=== PATIENT | male | born 1980 | race Caucasian/White ===

== ENCOUNTER 2022-01-22 07:22 | Outpatient (CLI) | payer OTHER, SELFPAY ==
[2022-01-22 13:48] LABS: Albumin* 4.7 g/dL (3.3-5.0); Chloride* 103 mmol/L (96-114)
[2022-01-22 13:49] LABS: Sodium* 137 mmol/L (135-149)
[2022-01-22 13:51] LABS: Alkaline Phosphatase* 73 U/L (40-150); Aspartate Amino Transferase* 131 U/L (12-35); Bilirubin Total* 0.8 mg/dL (0.1-1.5); Carbon Dioxide* 26 mmol/L (20-32); Cholesterol* 259 mg/dL (90-199); Potassium* 4.4 mmol/L (3.6-5.1); Total Protein* 7.6 g/dL (6.0-8.3)
[2022-01-22 13:52] LABS: Alanine Aminotransferase* 179 U/L (4-50); Blood Urea Nitrogen* 11 mg/dL (5-24); Calcium* 9.8 mg/dL (8.4-10.6); Glucose* 188 mg/dL (60-115); HDL Cholesterol* 76 mg/dL (>=40); LDL Cholesterol Calculated 149 mg/dL (<100); Triglycerides* 169 mg/dL (40-149)
[2022-01-22 13:53] LABS: Creatinine Urine 170.5 mg/dL
[2022-01-22 14:00] LABS: Microalbumin Creatinine Ratio 10 mg/g (0-30); Microalbumin Urine 3 mg/dL
[2022-01-22 14:36] LABS: Creatinine* 0.8 mg/dL (0.5-1.5); Estimated Glomerular Filt Rate 113 ml/min
== END 2022-01-22 07:23 | disposition home or self-care (01) ==
PROVIDERS: PCP Physician Assistant Medical; Visit Provider Physician Assistant Medical
DX: E78.5 Hyperlipidemia, unspecified (principal); E11.9 Type 2 diabetes mellitus without complications; I10 Essential (primary) hypertension
CPT/HCPCS: 80053; 80061; 82043; 82570

== ENCOUNTER 2022-10-09 12:22 | Outpatient (CLI) | payer OTHER, SELFPAY ==
--- NOTE | 2022-10-09 08:52 | W.ANESCHARGE ---
Anesthesia Charges Start Date/Time Anesthesia Start Date: 10/09/22 Anesthesia Start Time: 13:23 Stop Date/Time Anesthesia Stop Date: 10/09/22 Anesthesia Stop Time: 14:04
--- NOTE | 2022-10-09 14:07 | W.ANESCHARGE ---
Anesthesia Charges Start Date/Time Anesthesia Start Date: 10/09/22 Anesthesia Start Time: 13:23 Stop Date/Time Anesthesia Stop Date: 10/09/22 Anesthesia Stop Time: 14:04
== END 2022-10-09 12:23 | disposition home or self-care (01) ==
PROVIDERS: PCP Physician Assistant Medical; Visit Provider Internal Medicine
DX: K62.89 Other specified diseases of anus and rectum (principal); K63.5 Polyp of colon; K56.690 Other partial intestinal obstruction; D49.0 Neoplasm of unspecified behavior of digestive system
CPT/HCPCS: 45380; 45381; 45385; 811; 812; 88304; 88305; J2704; J3490

== ENCOUNTER 2023-03-31 10:39 | Outpatient (CLI) | payer OTHER, SELFPAY | END 2023-03-31 10:40 | disposition home or self-care (01) | PROVIDERS: PCP Physician Assistant Medical; Visit Provider Physician Assistant Medical | DX: E11.9 Type 2 diabetes mellitus without complications (principal); E78.2 Mixed hyperlipidemia; I10 Essential (primary) hypertension | CPT/HCPCS: 80053; 80061; 82043; 82570 ==